=== PATIENT | male | born 1975 | race Two or more races ===

== ENCOUNTER 2020-06-03 13:10 | Emergency (ER) | payer OTHER ==
[~2020-06-03] VITALS: Ht 175.3 cm; Wt 79.0 kg
--- NOTE | 2020-06-03 13:37 | PHYS DOC ---
Past History Past Medical History: Other (PALPITATIONS, unknown heart arrhythmia) Adult General Chief Complaint Chief Complaint: WEAKNESS/GENERALIZED HPI HPI Patient is a 45-year-old male who presents for weakness. Patient is currently [employer] and has history of an unknown arrhythmia for which he takes 75 mg Toprol-XL for. He has been taking this dose for past 2 years. Nonetheless, patient reports increased stress as he is [place] [employer]. He has not been sleeping well. Reports waking up this morning and after taking medications had classic symptoms of symptomatic bradycardia such as dizziness, fogginess, and severe lethargy. Patient denies any known history of Nsavf-Gbdujuteg-Rwspf or Brugada. No falls or vision changes Review of Systems Review of Systems Fourteen body systems of review of systems have been reviewed. See HPI for pertinent positives and negative responses, other andre all other systems are negative, non-pertinent or non-contributory Allergies Allergies Allergies Coded Allergies Type Severity Reaction Last Updated Verified promethazine Allergy Unknown 06/03/20 Yes Physical Exam Physical Exam Constitutional: Well developed, well nourished, no acute distress, non-toxic appearance. HENT: Normocephalic, atraumatic, bilateral external ears normal, oropharynx moist, no oral exudates, nose normal. Eyes: PERRLA, EOMI, conjunctiva normal, no discharge. Neck: Normal range of motion, no tenderness, supple, no stridor. Cardiovascular: Heart rate bradycardic, sinus rhythm, no murmurs rubs or gallops Lungs & Thorax: Bilateral breath sounds clear to auscultation Abdomen: Bowel sounds normal, soft, no tenderness, no masses, no pulsatile masses. Nonsurgical abdomen, no peritoneal signs Skin: Warm, dry, no erythema, no rash. Back: No tenderness, no CVA tenderness. Extremities: No tenderness, no cyanosis, no clubbing, ROM intact, no edema. Neurologic: Alert and oriented X 3, grossly normal motor & sensory function, no focal deficits noted. Psychologic: Affect normal, judgement normal, mood normal. Current Patient Data Vital Signs Vital Signs Date Time Temp Pulse Resp B/P (MAP) Pulse Ox O2 Delivery O2 Flow Rate FiO2 06/03/20 13:29 98.0 56 16 170/84 (112) 99 Room Air Lab Results Laboratory Tests Test 06/03/20 13:33 White Blood Count 6.9 x10^3/uL (4.0-11.0) Red Blood Count 4.77 x10^6/uL (4.30-5.70) Hemoglobin 15.7 g/dL (13.0-17.5) Hematocrit 46.2 % (39.0-53.0) Mean Corpuscular Volume 97 fL (79-100) Mean Corpuscular Hemoglobin 33 pg (25-35) Mean Corpuscular Hemoglobin Concent 34 g/dL (31-37) Red Cell Distribution Width 13.3 % (11.5-14.5) Platelet Count 180 x10^3/uL (140-400) Neutrophils (%) (Auto) 72 % (31-73) Lymphocytes (%) (Auto) 20 % (24-48) Monocytes (%) (Auto) 7 % (0-9) Eosinophils (%) (Auto) 1 % (0-3) Basophils (%) (Auto) 1 % (0-3) Neutrophils # (Auto) 5.0 x10^3uL (1.8-7.7) Lymphocytes # (Auto) 1.4 x10^3/uL (1.0-4.8) Monocytes # (Auto) 0.5 x10^3/uL (0.0-1.1) Eosinophils # (Auto) 0.1 x10^3/uL (0.0-0.7) Basophils # (Auto) 0.0 x10^3/uL (0.0-0.2) Sodium Level 141 mmol/L (136-145) Potassium Level 3.9 mmol/L (3.5-5.1) Chloride Level 104 mmol/L (98-107) Carbon Dioxide Level 29 mmol/L (21-32) Anion Gap 8 (6-14) Blood Urea Nitrogen 16 mg/dL (8-26) Creatinine 1.2 mg/dL (0.7-1.3) Estimated GFR (Cockcroft-Gault) 65.5 BUN/Creatinine Ratio 13 (6-20) Glucose Level 106 mg/dL (70-99) Calcium Level 9.0 mg/dL (8.5-10.1) Magnesium Level 2.3 mg/dL (1.8-2.4) Total Bilirubin 0.5 mg/dL (0.2-1.0) Aspartate Amino Transf (AST/SGOT) 29 U/L (15-37) Alanine Aminotransferase (ALT/SGPT) 34 U/L (16-63) Alkaline Phosphatase 45 U/L (46-116) Troponin I Quantitative < 0.017 ng/mL (0-0.055) Total Protein 7.5 g/dL (6.4-8.2) Albumin 4.3 g/dL (3.4-5.0) Albumin/Globulin Ratio 1.3 (1.0-1.7) EKG EKG EKG ordered and interpreted by myself at 1336 hours as sinus rhythm at 53 bpm, unremarkable intervals, no axis deviation, no acute ischemic findings, no STEMI Radiology/Procedures Radiology/Procedures PROCEDURE: PORTABLE CHEST 1V EXAM: PORTABLE CHEST 1V INDICATION: Reason: PALPITATIONS / Spl. Instructions: / History: . TECHNIQUE: Single view COMPARISON: None FINDINGS: The heart size is normal. The great vessels appear unremarkable. There is no hilar or mediastinal mass. The lungs are clear. There is no pleural effusion or pneumothorax. There are no significant osseous abnormalities. IMPRESSION: No active cardiopulmonary disease. Electronically signed by: Yelitza Greenberg MD (06/03/2020 2:06 PM) [id number] Heart Score HEART Score for Chest Pain: HEART Score for Chest Pain Response (Comments) Value History Slighlty/Non-Suspicious 0 ECG Normal 0 Age < 45 0 Risk Factors 1 or 2 Risk Factors 1 Troponin < Normal Limit 0 Total 1 Risk Factors: Risk Factors: DM, Current or recent (<one month) smoker, HTN, HLP, family history of CAD, obesity. Risk Scores: Risk Factors: DM, Current or recent (<one month) smoker, HTN, HLP, family history of CAD, obesity. Course & Med Decision Making Course & Med Decision Making Pertinent Labs and Imaging studies reviewed. (See chart for details) Discussed most likely diagnosis of symptomatic bradycardia that is now resolved I called Dr. Morris, medical voucher clerk at [facility] and case discussed. Joint decision to decrease patient's Toprol-XL from 75 mg to 25 mg daily Given that patient is asymptomatic, tolerating p.o., ambulatory without any other concerning signs or symptoms, we feel he is safe for discharge home Plan of care discussed with patient who is also agreeable to plan, all questions and concerns addressed prior to ER departure in stable condition Prince Disclaimer Prince Disclaimer This electronic medical record was generated, in whole or in part, using a voice recognition dictation system. Departure Departure: Impression: Primary Impression: Symptomatic sinus bradycardia Disposition: 01 DC HOME SELF CARE/HOMELESS Condition: STABLE Referrals: GERARDO MONTAGUE (PCP) Patient Instructions: Bradycardia Additional Instructions: As discussed prior to your departure, please call your new PCP in [place] to schedule outpatient follow-up in upcoming 14 days after ER discharge We discussed plan of care extensively prior to you leaving. If you have any qu estions or concerns prior to outpatient follow-up please do not hesitate to call our ER at [phone] It was a pleasure to take care of you and I wish you a speedy recovery! DEVORA MCRAE DO Jun 03, 2020 13:37
--- NOTE | 2020-06-03 13:46 | EKG ---
[address] [address] Test Date: 2020-06-03 Test Time: 13:21:20 Pat Name: KP MEADE Department: Room: Gender: M Field Liability Generalist: KEMI : 1975 Requested By: DEVORA MCRAE Order Number: [id number] Reading MD: Measurements Intervals [place] Rate: 53 P: 28 DE: 182 QRS: 60 QRSD: 88 T: 27 QT: 410 QTc: 387 Interpretive Statements SINUS RHYTHM NORMAL ECG RI6.02 No previous ECG available for comparison
[2020-06-03 13:47] LABS: BASO % 1 % (0-3); EOS # 0.1 x10^3/uL (0.0-0.7); EOS % 1 % (0-3); HEMATOCRIT 46.2 % (39.0-53.0); HEMOGLOBIN 15.7 g/dL (13.0-17.5); LYMPH # 1.4 x10^3/uL (1.0-4.8); LYMPH % 20 % (24-48); MEAN CORPUSCULAR HEMOGLOBIN 33 pg (25-35); MEAN CORPUSCULAR HGB CONC 34 g/dL (31-37); MEAN CORPUSCULAR VOLUME 97 fL (79-100); MONO # 0.5 x10^3/uL (0.0-1.1); MONO % 7 % (0-9); NEUT % 72 % (31-73); PLATELET COUNT 180 x10^3/uL (140-400); RED BLOOD COUNT 4.77 x10^6/uL (4.30-5.70); RED CELL DISTRIBUTION WIDTH 13.3 % (11.5-14.5); WHITE BLOOD COUNT 6.9 x10^3/uL (4.0-11.0)
[2020-06-03 13:55] LABS: CREATININE 1.2 mg/dL (0.7-1.3); GFR 65.5; POTASSIUM 3.9 mmol/L (3.5-5.1)
[2020-06-03 14:01] LABS: ALBUMIN 4.3 g/dL (3.4-5.0); ALBUMIN/GLOBULIN RATIO 1.3 (1.0-1.7); MAGNESIUM 2.3 mg/dL (1.8-2.4); TOTAL BILIRUBIN 0.5 mg/dL (0.2-1.0); TOTAL PROTEIN 7.5 g/dL (6.4-8.2)
--- NOTE | 2020-06-03 14:08 | RAD ---
EXAM: PORTABLE CHEST 1V INDICATION: Reason: PALPITATIONS / Spl. Instructions: / History: . TECHNIQUE: Single view COMPARISON: None FINDINGS: The heart size is normal. The great vessels appear unremarkable. There is no hilar or mediastinal mass. The lungs are clear. There is no pleural effusion or pneumothorax. There are no significant osseous abnormalities. IMPRESSION: No active cardiopulmonary disease. Electronically signed by: Yelitza Greenberg MD (06/03/2020 2:06 PM) [id number]
[2020-06-03] MEDS ORDERED: IV NORMAL SALINE 500ML 500 ML IV ONE (14:30)
[2020-06-03 15:00] VITALS: BP 144/82
== END 2020-06-03 15:10 | disposition home or self-care (01) ==
LOC: ER 13:10
DX: R00.1 Bradycardia, unspecified (principal); R53.1 Weakness; R42 Dizziness and giddiness; Z88.8 Allergy status to other drugs, medicaments and biological substances
CPT/HCPCS: 36415; 71045; 80053; 83735; 84484; 85025; 93005; 99285; J7040; 96360